=== PATIENT | male | born 1990 | race Two or more races ===

== ENCOUNTER 2020-03-31 12:01 | Emergency (ER) | payer OTHER ==
[~2020-03-31] VITALS: Ht 167.6 cm; Wt 81.0 kg
[2020-03-31 12:02] VITALS: BP 139/87
--- OUTSIDE RECORDS SUMMARY | 2020-03-31 12:25 | CCD ---
Author Author [facility] Organization [facility] Address Unknown Phone Unavailable Support Name Relationship Address Phone [facility] Next Of Kin [address] [place] [address] Unavailable ALOK ROJAS Next Of Kin [id number] [facility] [place] [address] Re-disclosure Warning The records that you are about to access may contain information from federally-assisted alcohol or drug abuse programs. If such information is present, then the following federally mandated warning applies: This information has been disclosed to you from records protected by federal confidentiality rules (42 CFR part 2). The federal rules prohibit you from making any further disclosure of this information unless further disclosure is expressly permitted by the written consent of the person to whom it pertains or as otherwise permitted by 42 CFR part 2. A general authorization for the release of medical or other information is NOT sufficient for this purpose. The Federal rules restrict any use of the information to criminally investigate or prosecute any alcohol or drug abuse patient.The records that you are about to access may contain highly sensitive health information, the redisclosure of which is protected by Article 27-F of the [facility] Public Health law. If you continue you may have access to information: Regarding HIV / AIDS; Provided by facilities licensed or operated by the [facility] Office of Mental Health; or Provided by the [facility] Office for People With Developmental Disabilities. If such information is present, then the following [facility] mandated warning applies: This information has been disclosed to you from confidential records which are protected by state law. State law prohibits you from making any further disclosure of this information without the specific written consent of the person to whom it pertains, or as otherwise permitted by law. Any unauthorized further disclosure in violation of state law may result in a fine or half-way sentence or both. A general authorization for the release of medical or other information is NOT sufficient authorization for further disc losure. Medications Medication Brand Name Start Date Product Form Dose Route Admi nistrative Instructions Pharmacy Instructions Status Indications Reaction Description Data Source(s) 5-325 mg 11/28/2019 12:00:00 AM EDT tablet 10 TAKE ONE TABLET BY MOUTH EVERY 4 TO 6 HOURS NEEDED FOR PAIN MAXIMUM DAILY DOSE = 6 TABLETS TAKE ONE TABLET BY MOUTH EVERY 4 TO 6 HOURS NEEDED FOR PAIN MAXIMUM DAILY DOSE = 6 TABLETS SOLD: 11/28/2019 [facility] 0.12 % 11/28/2019 12:00:00 AM EDT mouthwash 473 RINSE AND SPIT WITH MOUTH USING 15ML (1 CAPFUL) FOR 30 SECONDS IN THE MORNING AND EVENING AFTER BRUSHING TEETH RINSE AND SPIT WITH MOUTH USING 15ML (1 CAPFUL) FOR 30 SECONDS IN THE MORNING AND EVENING AFTER BRUSHING TEETH SOLD: 11/28/2019 [facility] Insurance Providers Payer name Policy type / Coverage type Policy ID Covered green party ID Covered green party's relationship to davis Policy [place] Plan Information [facility] [id number]
--- NOTE | 2020-03-31 12:58 | REP ---
INDICATION: TRAUMA. COMPARISON: None. TECHNIQUE: Four views of the left ankle are presented. FINDINGS: Four views of the left ankle demonstrate intact ankle mortise. No fracture or subluxation is seen. Bones, joints and soft tissues are radiographically unremarkable. IMPRESSION: Negative left ankle radiographs. No fracture seen. <Electronically signed by Jaden Carey > 03/31/20 [id number]
== END 2020-03-31 14:41 | disposition home or self-care (01) ==
LOC: M ED 12:01
DX: S93.402A Sprain of unspecified ligament of left ankle, initial encounter (principal); X50.1XXA Overexertion from prolonged static or awkward postures, initial encounter; Y92.89 Other specified places as the place of occurrence of the external cause; Y93.23 Activity, snow (alpine) (downhill) skiing, snowboarding, sledding, tobogganing and snow tubing; Y99.9 Unspecified external cause status; Z88.6 Allergy status to analgesic agent